=== PATIENT | male | born 1955 | race Caucasian/White ===

== ENCOUNTER 2018-03-17 00:52 | Emergency (ER) | payer BC ==
[~2018-03-17] VITALS: Ht 180.3 cm; Wt 99.0 kg
[2018-03-17] MEDS ORDERED: LIDOCAINE GEL 2%, 5ML ONE (01:27)
[2018-03-17] MEDS ORDERED: HYDROcodone/APAP 5/325 TABLET ONE (01:27)
[2018-03-17] MEDS ORDERED: HYDROcodone/APAP 5/325 TABLET PO ONE (01:30)
[2018-03-17] MEDS ORDERED: LIDOCAINE GEL 2%, 5ML TP ONE (01:30)
[2018-03-17 02:45] VITALS: BP 127/78
== END 2018-03-17 02:47 | disposition home or self-care (01) ==
LOC: ED 02:13
DX: N40.1 Benign prostatic hyperplasia with lower urinary tract symptoms (principal); R33.8 Other retention of urine; R10.30 Lower abdominal pain, unspecified; I10 Essential (primary) hypertension; E78.00 Pure hypercholesterolemia, unspecified; Z87.891 Personal history of nicotine dependence; Z98.61 Coronary angioplasty status
CPT/HCPCS: 51702; 99284

== ENCOUNTER → 2018-12-03 | Outpatient (CLI) | payer BC ==
[~2018-12-03] MED LIST: ACET-1600 PO; ATOR10TA9 PO; IBUP200C8 PO; LISI-167 PO; METF500T17 PO; MIRA50TA PO; NIFE30TA15 PO; TAMS-11 PO
[2018-12-03 12:03] LABS: MICROSCOPIC NOT IND
[2018-12-03 12:11] LABS: CALCIUM 9.5 mg/dL (8.5-10.1); CHLORIDE 105 mmol/L (98-107)
[2018-12-03 12:16] LABS: ALANINE AMINOTRANSFERASE 37 U/L (12-78); ALBUMIN 4.2 g/dL (3.4-5.0); ALKALINE PHOSPHATASE 69 U/L (45-117); ANION GAP 8 mmol/L (5-15); BILIRUBIN,TOTAL 1.2 mg/dL (0.2-1.0); TOTAL PROTEIN 7.9 g/dL (6.4-8.2)
== END | disposition home or self-care (01) ==
LOC: STAR 10:46
PROVIDERS: ATTEND Urology
DX: Z01.818 Encounter for other preprocedural examination (principal); N21.0 Calculus in bladder
CPT/HCPCS: 36415; 80053; 81003; 87086; 93005

== ENCOUNTER 2018-12-14 10:27 | Day surgery (SDC) | payer BC ==
[~2018-12-14] VITALS: Ht 182.9 cm; Wt 101.2 kg
[2018-12-14] MEDS ORDERED: LACTATED RINGERS 1,000 ML IV SCH (10:42)
[2018-12-14 11:09] VITALS: BP 134/77
[2018-12-14] MEDS ORDERED: FENTANYL PF 100 MCG/2ML ONE ×2 (12:33→13:27)
[2018-12-14] MEDS ORDERED: MIDAZOLAM 1 MG/ML, 2ML ONE (12:33)
[2018-12-14] MEDS ORDERED: DEXAMETHASONE 4 MG/ML, 1ML ONE (12:37)
[2018-12-14] MEDS ORDERED: ONDANSETRON 2MG/ML, 2ML ONE (12:37)
[2018-12-14] MEDS ORDERED: CEFAZOLIN 1,000 MG ONE (12:37)
[2018-12-14] MEDS ORDERED: PROPOFOL 10 MG/ML, 20ML ONE (12:37)
[2018-12-14] MEDS ORDERED: ONDANSETRON 2MG/ML, 2ML IV PRN (13:00)
[2018-12-14] MEDS ORDERED: OXYcodone 5 MG/5 ML ORAL.SOL UDC PO PRN (13:00)
[2018-12-14] MEDS ORDERED: HYDROmorphone 2 MG/ML, 1ML IVPush PRN (13:00)
[2018-12-14] MEDS ORDERED: ONDANSETRON ODT 8 MG PO PRN (13:00)
[2018-12-14] MEDS ORDERED: ACETAMINOPHEN 325 MG TABLET PO PRN (13:00)
[2018-12-14] MEDS ORDERED: PROMETHAZINE 25 MG/ML, 1ML IV PRN (13:00)
[2018-12-14] MEDS ORDERED: MEPERIDINE/PF 25MG/0.5ML IVPush PRN (13:00)
[2018-12-14] MEDS ORDERED: FENTANYL PF 100 MCG/2ML IV PRN (13:00)
== END 2018-12-14 16:00 | disposition home or self-care (01) ==
LOC: OUT 10:27
PROVIDERS: ATTEND Urology
DX: N21.0 Calculus in bladder (principal); E11.9 Type 2 diabetes mellitus without complications; E78.5 Hyperlipidemia, unspecified; Z79.899 Other long term (current) drug therapy; Z79.82 Long term (current) use of aspirin; Z87.891 Personal history of nicotine dependence; Z98.890 Other specified postprocedural states; Z79.4 Long term (current) use of insulin
CPT/HCPCS: 52317; 82360; 82962; 88300; J0690; J1100; J2250; J2405; J2704; J3010; J7120